=== PATIENT | female | born 2000 | race Caucasian/White ===

== ENCOUNTER 2022-09-23 15:04 | Emergency (ER) | payer OTHER ==
[~2022-09-23] VITALS: Ht 160 cm; Wt 123.8 kg
[2022-09-23] MEDS ORDERED: ONDANSETRON HCL INJ 2MG/ML 2ML 2 MG/ML VIAL IV STA (15:31)
[2022-09-23 15:41] LABS: BASOPHILS # (AUTO) 0.1 (0.0-0.1); BASOPHILS % 0.7 % (0.0-1.0); EOSINOPHILS % 0.3 % (0.0-6.0); HEMATOCRIT 42.2 % (34.2-44.1); HEMOGLOBIN 12.9 g/dL (12.0-16.0); LYMPHOCYTES # (AUTO) 3.4 (1.0-3.2); LYMPHOCYTES % 29.1 % (18.0-39.1); MEAN CORPUSCULAR HEMOGLOBIN 30.9 pg (28-32); MEAN CORPUSCULAR HGB CONC 30.6 g/dL (31-35); MONOCYTES % 8.2 % (4.4-11.3); NEUTROPHILS # (AUTO) 7.1 (2.1-6.9); NEUTROPHILS % 61.4 % (38.7-80.0); PLATELET COUNT 346 x10e3/uL (140-360); RED BLOOD COUNT 4.18 x10e6/uL (3.6-5.1)
[2022-09-23] MEDS ORDERED: Morphine 4mg INJECTION 4 MG/ML INJ IV PRN (15:45)
[2022-09-23 15:56] LABS: ALBUMIN 4.4 g/dL (3.5-5.0); ALBUMIN/GLOBULIN RATIO 1.1 (0.8-2.0); ANION GAP 14.1 mmol/L (8-16); CALCIUM 9.3 mg/dL (8.4-10.2); CREATININE, SERUM 0.78 mg/dL (0.57-1.11); POTASSIUM 4.1 mmol/L (3.5-5.1)
[2022-09-23 16:02] LABS: LIPASE 19 U/L (8-78)
[2022-09-23] MEDS ORDERED: PEPCID20 MG PO (16:25)
[2022-09-23] MEDS ORDERED: DICYCLOMINE HCL20 MG PO (16:25)
[2022-09-23] MEDS ORDERED: ONDANSETRON ODT4 MG PO (16:25)
[2022-09-23] MEDS ORDERED: DICYCLOMINE HCL 20 MG/2 ML VIAL IM ONE (16:30)
[2022-09-23] MEDS ORDERED: DICYCLOMINE HCL 20 MG TAB PO ONE (16:30)
[2022-09-23 16:47] VITALS: BP 129/68
== END 2022-09-23 17:17 | disposition home or self-care (01) ==
LOC: ER 15:19
DX: R10.13 Epigastric pain (principal); K29.70 Gastritis, unspecified, without bleeding; R11.0 Nausea
CPT/HCPCS: 36415; 76705; 80053; 83690; 84702; 85025; 99283; J0500; J2405

== ENCOUNTER 2022-12-24 18:10 | Emergency (ER) | payer OTHER ==
[~2022-12-24] VITALS: Ht 160 cm; Wt 123.8 kg
[~2022-12-24 18:10] MED LIST: DICYCLOMINE HCL20 MG PO; ONDANSETRON ODT4 MG PO; PEPCID20 MG PO
[2022-12-24 18:33] VITALS: O2SAT 100
[2022-12-24] MEDS ORDERED: FLONASE ALLERG9.9 ML INH (18:48)
[2022-12-24] MEDS ORDERED: ZYRTEC10 M3 PO (18:48)
== END 2022-12-24 19:00 | disposition home or self-care (01) ==
LOC: ER 18:20
DX: J02.9 Acute pharyngitis, unspecified (principal); J30.9 Allergic rhinitis, unspecified; R50.9 Fever, unspecified
CPT/HCPCS: 99282

== ENCOUNTER 2023-01-20 23:20 | Emergency (ER) | payer OTHER ==
[~2023-01-20] VITALS: Ht 160 cm; Wt 123.8 kg
[~2023-01-20 23:20] MED LIST changes: +FLONASE ALLERG9.9 ML INH; +ZYRTEC10 M3 PO
[2023-01-20 23:35] VITALS: O2SAT 100
== END 2023-01-21 00:10 | disposition home or self-care (01) ==
LOC: ER 23:30
DX: J02.9 Acute pharyngitis, unspecified (principal)
CPT/HCPCS: 83518; 87070; 99282

== ENCOUNTER 2024-03-25 00:56 | Emergency (ER) | payer SELFPAY ==
[~2024-03-25] VITALS: Ht 160 cm; Wt 123.8 kg
[2024-03-25 01:00] VITALS: PULSE 99; RESP 17; TEMP 99.6; O2SAT 99
[2024-03-25] MEDS: TRAMADOL HCL 50 MG TAB PO STA (01:08)
[2024-03-25] MEDS ORDERED: TRAMADOL HCL 50 MG TAB ONE (01:09)
[2024-03-25] MEDS ORDERED: ONDANSETRON ODT4 MG PO (01:56)
[2024-03-25] MEDS ORDERED: ACETAMINOPHEN-1 EAC4 PO (01:56)
== END 2024-03-25 02:00 | disposition home or self-care (01) ==
LOC: ER 01:02
DX: S50.11XA Contusion of right forearm, initial encounter (principal); V47.5XXA Car driver injured in collision with fixed or stationary object in traffic accident, initial encounter; Y92.89 Other specified places as the place of occurrence of the external cause; E66.01 Morbid (severe) obesity due to excess calories
CPT/HCPCS: 99283